=== PATIENT | male | born 1980 | race Caucasian/White ===

== ENCOUNTER 2023-10-03 21:39 | Emergency (ER) | payer SELFPAY ==
[2023-10-03 21:45] VITALS: BP 120/74; PULSE 124; RESP 20; TEMP 36.6; O2SAT 99
--- NOTE | 2023-10-03 22:13 | XRR_ITS ---
PROCEDURE INFORMATION: Exam: XR Left Hand Exam date and time: 10/03/2023 10:19 PM Age: 43 years old Clinical indication: Pain; Left; Patient HX: Patient has swelling from upper L arm to hand; Additional info: Swelling/pain/redness TECHNIQUE: Imaging protocol: Radiologic exam of the left hand. Views: 3 or more views. COMPARISON: No relevant prior studies available. FINDINGS: Bones/joints: No acute fracture. Soft tissues: Soft tissue swelling along the dorsal aspect of the hand. XR/XR hand LT min 3V* [id number] IMPRESSION: 1. Soft tissue swelling along the dorsal aspect of the hand. 2. No acute fracture.
[2023-10-03 23:04] VITALS: BP 129/91; PULSE 114; RESP 18; O2SAT 99
--- NOTE | 2023-10-03 23:13 | W.ED.EXTPRO ---
HPI - Extremity Problem General: Chief complaint: Extremity Problem,Nontraumatic Stated complaint: Left hand swelling Time Seen by Provider: 10/03/23 22:13 History of Present Illness: 43-year-old male presents to the emergency department stating that he has pain and swelling to his left hand. He states there is also significant redness. He states that he woke up this morning with his hand much more swollen he states the pain currently is an aching 7 out of 10 pain. He does have superficial abrasions to the hand. He states he has known known trauma or cause for infection to his left hand. He states he has not taken any pain medications or antibiotics prior to coming to the emergency department. He denies numbness or tingling to the extremity. He denies fevers chills or night sweats. Review of Systems General: Reports: 10 or more systems reviewed and unremarkable except in HPI and below Musc: Reports: extremity pain and extremity swelling Skin/Breast: Reports: erythema Physical Exam Narrative: EXAM NARRATIVE: Constitutional: the patient appears well nourished and of normal development. Vital signs as documented. No acute distress at present. Alert and oriented-to person, place, time and situation. Head, eyes, ears, nose, mouth, throat: Normocephalic, atraumatic. Pupils-equal, round, reactive to light. No scleral icterus. Normal-appearing external ears. Normal appearing nasal turbinates, no drainage. No obvious oral lesions, posterior oropharynx without erythema or exudates. Neck: Supple, trachea is midline, no lymphadenopathy, no jugular venous distension, thyromegaly, or carotid bruits. Carotid upstrokes are brisk bilaterally. Lungs: clear to auscultation to all lung pimentel. Symmetrical rise and fall of chest, no obvious signs of increased work of breathing at present. Cardiac: Regular rate and rhythm, positive S1, S2. No murmurs, rubs or gallops that I can appreciate Abdomen: Soft, non-tender to palpation, normal active bowel sounds to all quadrants. Extremities: 2+ pulses in the upper extremities that are equal bilaterally, 2+ pulses in the lower extremities that are equal bilaterally. Dorsal aspect of the left hand is with moderate erythema, there is multiple superficial abrasions to the hand. Patient states those are from his work. Flexion and extension of the hand and fingers are intact. The left hand does feel significantly warm to touch. Capillary refill is less than 3 seconds. He does have moderate edema to the left hand and wrist. Moves all extremities well, sensation to all extremities are noted. Skin: Warm, dry, intact. Course Vital Signs: Vital signs: Vital Signs Temperature 97.9 F 10/03/23 21:45 Pulse Rate 114 H 10/03/23 23:04 Respiratory Rate 18 10/03/23 23:04 Blood Pressure 129/91 10/03/23 23:04 Pulse Oximetry 99 10/03/23 23:04 Oxygen Delivery Me thod Room Air 10/03/23 23:04 MDM - Extremity (Nontraumatic) Medical Decision Making Physical exam completed and documented, I did obtain a x-ray of the hand that demonstrated no acute fracture and only soft tissue swelling. I discussed the need for follow-up with the patient. I also discussed anticipatory guidance and return precautions and red flags to include worsening redness, fever, numbness or tingling to the hand. And I will prescribe the patient antibiotics. Lab Data Radiology Impressions Hand X-Ray 10/03/23 22:13 IMPRESSION: 1. Soft tissue swelling along the dorsal aspect of the hand. 2. No acute fracture. All radiology interpretation(s) finalized by discharge Discharge Plan Discharge Patient Disposition: Home Clinical Impression: Cellulitis of hand, left, Hand pain, left Condition: Stable Prescriptions: New cephalexin 500 mg capsule 500 mg PO BID 14 Days Qty: 28 0RF naproxen 500 mg tablet 500 mg PO Q12H PRN (Reason: pain) Qty: 20 0RF Discharge Orders: Discharge ED (Routine); Ordered 10/03/23 Ordered By: Wally Caro Referrals: Julia Broussard, MIL[facility]UL[facility] [Family Provider] - Discharge Diet: Usual diet Discharge Activity: Resume usual activity Patient Instructions: Opioid Safety, Pain Management Activity Restrictions/Additional Instructions: Activity Restrictions/Additional Instructions: Thank you for choosing [facility] for your healthcare needs today. Please realize that you were seen in the Emergency Department and that we are providing you with an emergency medical screening exam and this may not be a complete and all inclusive of all the testing and or medical work-up that you may need to determine your ailment or severity of your illness. It is very important that you follow-up as instructed with your Primary care provider or Specialist for additional evaluation and to discuss your medical treatment plan. Coding Level of Care Code ED [employer] for Ivet Milligan
[2023-10-03] MEDS: ketorolac 60 mg/2 mL INJ IM (23:34)
[2023-10-03] MEDS: cefTRIAXone 1,000 MG in water for injection-sterile 2.1 ML 1 MG IM (23:34)
[2023-10-03 23:56] VITALS: BP 129/90; PULSE 91; RESP 18; O2SAT 98
== END 2023-10-03 23:57 | disposition home or self-care (01) ==
PROVIDERS: Emergency Provider Internal Medicine; Family Provider Nurse Practitioner
DX: L03.114 Cellulitis of left upper limb (principal)
CPT/HCPCS: 73130; 96372; 99284; J0696; J1885